=== PATIENT | female | born 1990 | race Asian ===

== ENCOUNTER 2023-07-17 17:26 | Emergency (ER) | payer OTHER, SELFPAY ==
[2023-07-17 17:31] VITALS: BP 91/66
[2023-07-17 17:57] LABS: % Basophils 1.1 % (0-2); % Eosinophils 2.4 % (0-6); % Immature Granulocytes 0.3 % (0-0.5); % Lymphocytes 37.2 % (20.5-51.1); % Monocytes 7.8 % (1.7-9.3); % Neutrophils 51.2 % (42.2-75.2); Absolute Eosinophils 0.1 10^3/uL (0-0.7); Absolute Lymphocytes 1.4 10^3/uL (1.2-3.4); Absolute Monocytes 0.3 10^3/uL (0.1-0.6); Absolute Neutrophils 1.9 10^3/uL (1.4-6.5); Hematocrit 41.7 % (37.0-47.0); Hemoglobin 14.7 g/dL (12.0-16.0); Mean Corp Hgb Conc. 35.3 g/dL (33.0-37.0); Mean Corpuscular Hgb 29.6 pg (27.0-31.0); Mean Corpuscular Volume 84.1 fL (81.0-99.0); Mean Platelet Volume 11.5 fL (7.4-10.4); Nucleated Red Blood Cells % 0 %; Platelet Count 181 10^3/uL (130-400); Red Blood Cell Count 4.96 10^6/uL (4.20-5.40); Red Cell Dist. Width 12.3 % (11.5-14.5); White Blood Cell Count 3.7 10^3/uL (4.8-10.8)
[2023-07-17 18:06] LABS: HCG, Serum Qualitative Screen Negative
[2023-07-17 18:17] LABS: Blood Urea Nitrogen 13 mg/dl (7-17); Calcium 9.2 mg/dl (8.4-10.2); Carbon Dioxide 24 mmol/L (22-30); Chloride 99 mmol/L (98-107); Glucose 95 mg/dl (70-99); Potassium 3.1 mmol/L (3.5-5.1); Sodium 132 mmol/L (135-145); eGFR > 60.00
[2023-07-17 18:19] LABS: Alcohol None Detected
[2023-07-17 18:28] LABS: Amphetamines Negative (Negative); Barbiturates Negative (Negative); Benzodiazepines Negative (Negative); Buprenorphine Negative (Negative); Cocaine Negative (Negative); Marijuana Negative (Negative); Methadone Negative (Negative); Methamphetamines Negative (Negative); Opiates Negative (Negative); Phencyclidine Negative (Negative); Tricyclic Antidepressants Negative (Negative)
[2023-07-17 18:40] LABS: COVID-19 Antigen Negative (Negative)
--- NOTE | 2023-07-17 19:16 | ED.GENMED ---
History of Present Illness
General
Chief Complaint: Crisis Evaluation
Exam Limitations: none
Time Seen by Provider: 07/17/23 18:18
Nursing documentation reviewed up to this point in time: agreed with
Travel History
Have you had any contact with someone who has COVID-19?: No
Do you have any symptoms of coronavirus? Fever > 100 degrees, chills, cough, shortness of breath, sore throat, loss of taste or smell, muscle aches, or headache?: No
History of Present Illness
History of Present Illness:
33-year-old female with a past medical history of anxiety depression who presents to the emergency room on a 302 filed by her mother apparently due to psychotic break, paranoid behavior and failure to care for herself. Patient refusing to speak
during my assessment�she will occasionally nod yes or no to certain questions but will not provide any verbal response. According to 302 report filed by her mother patient initially presented with psychotic behavior was prescribed medications for
these and was noncompliant. Apparently stole mother's credit card and booked a trip to [place] and flew there; apparently a missing person report was filed. Apparently patient flown back home, once again missing and this week and was found this
weekend sitting in a warehouse in [place] staring straight ahead apparently having not bathed or eaten in quite some time. Has been exhibiting increasing paranoia per report. When asked the patient if she has any physical pain or complaints
she shakes her head no. When asked her if she is suicidal she does not respond. When asked if she is homicidal she does not respond. When I ask if she feels safe at home she shrugs. Rest of history from patient limited as she is unwilling to
answer further questions.
Past History
Past History
ED Past Medical History: Psychiatric
ED Past Surgical History: Tonsilectomy
Social History
Tobacco: Non-smoker
Alcohol: None
Drug: None
Personal: Single
Living: alone
Employment: Employed
Review of Systems
Review of Systems
Unable to obtain full review of systems at this time due to: non-verbal
All Other Systems: Not applicable
Phy Exam
Physical Exam
Physical Exam:
General: Awake, alert; sitting in bed comfortably eating a food tray and in no acute distress
Head: Normocephalic, atraumatic
Eyes: Conjunctiva normal, EOMI
Throat: Airway intact, handling secretions
Neck: Trachea midline, supple without meningismus
Lungs: Clear to auscultation bilaterally, no wheezing, rales, rhonchi
Heart: Regular rate and rhythm, no murmurs, gallops, or rubs
Neuro: Moving all extremities with no gross motor or sensory deficit
Extremities: Warm and well-perfused
Psych: Withdrawn affect
Scores
Heart Failure Risk
Heart Failure Risk Score: Not Applicable
Heart Score for Chest Pain Patients
STEMI patient?: Not applicable
Withdrawal Assessment of Alcohol
Withdrawal Assessment Completed?: Not applicable
Course
Orders/Labs/Results
Orders:
Orders
07/17/23 17:39
Test Result ONCE
07/17/23 17:49
Alcohol Urgent
Basic Metabolic Panel Urgent
COVID-19 Antigen Urgent
Source: Nasal Swab
Complete Blood Count/With Diff Urgent
HCG, Serum Qualitative Screen Urgent
Magnesium Urgent
Comment: ADD ON
Phosphorus Urgent
Comment: ADD ON
07/17/23 17:55
Urine Drug Abuse Screen Urgent
Date Specimen was Collected: 07/17/23
Time Specimen was Collected: 17:39
07/17/23 19:04
Potassium Chloride [KCl] 40 meq PO NOW STA
07/17/23 19:19
Add On- LAB Urgent
Tests Added?: magnesium
Add On- LAB Urgent
Tests Added?: phosphate
07/17/23 19:38
Acetaminophen Urgent
Salicylate Urgent
Abnormal Lab Results
07/17/23 07/17/23
17:49 19:38
WBC 3.7 L 10^3/uL
(4.8-10.8)
MPV 11.5 H fL
(7.4-10.4)
Sodium 132 L mmol/L
(135-145)
Potassium 3.1 L mmol/L
(3.5-5.1)
Salicylates < 1.0 L mg/dl
(2.0-20.0)
Acetaminophen < 10 L ug/ml
(10-30)
07/17/23 17:49
07/17/23 17:49
Vital Signs
Initial and Last Documented VS:
Initial Vital Signs
Temp Pulse Resp BP Pulse Ox
36.7 C 85 20 91/66 100
07/17/23 17:31 07/17/23 17:31 07/17/23 17:31 07/17/23 17:31 07/17/23 17:31
Last Documented Vital Signs
Temp Pulse Resp BP Pulse Ox
36.7 C 85 20 91/66 100
07/17/23 17:31 07/17/23 17:31 07/17/23 17:31 07/17/23 17:31 07/17/23 17:31
MDM/Problems Addressed
Differential Diagnosis Includes:
Psychosis, delusional disorder, behavioral disorder
MDM/Problems Addressed:
33-year-old female presents on a 302 filed by mother for erratic behavior and apparently psychotic/paranoid behavior recently and noncompliance with medication. Patient has run from home multiple times most recently found sitting in an unsafe area
having not taken care of herself as described above. Patient is unwilling to answer any questions here although she is awake and alert she does not provide verbal response to any questions. Occasionally shakes her head yes or no. She does not
appear in any distress, her physical exam is as above. Plan to place an IV will check basic screening labs including a CBC and a CMP, hCG, tox screen. Discussed with crisis: patient awaiting telepsych evaluation. Monitor on one-to-one observation
reassess after the above.
Initial labs reviewed: CBC shows no clinically significant abnormalities, CMP shows mild hypokalemia which we will replete p.o. UDS and alcohol levels negative. At this point medically cleared for psychiatric placement. Awaiting telepsych
evaluation. Continue to monitor.
Telepsych evaluated patient, 302 upheld. Continue to monitor while awaiting placement.
Chronic conditions affecting care:
Anxiety/depression
*Pulse Oximetry
Patient hypoxic: no
*Critical Care Note
Total Time (30-74mins, 75-104mins- exclusive of procedures): Not Applicable
Data Reviewed
Source: patient and other (302 filing)
Patient Management
Discussion with other providers: Other (Crisis staff)
ED Attending Note
-
Portions of this chart may have been created with voice recognition software.� Occasional wrong word or��sound alike� substitutions may have occurred due to the inherent limitations of voice recognition software.
Discharge Plan
Departure
Patient Disposition: Psych Facility
Date of Disposition: 07/17/23
Time of Disposition: 20:43
Discharge Problem:
Psychosis
Referrals:
UNKNOWN - PT DOES,NOT KNOW [Family Provider] -
Interventions
Interventions:
*Risk Screen - Suicide Last Done: 07/17/23 18:00
*General Assessment Last Done: 07/17/23 17:31
*Neglect/Abuse Screening Last Done: 07/17/23 17:31
ED- Fall Risk Assessment Last Done: 07/17/23 23:30
*ED COVID-19 Vaccine History Last Done: 07/17/23 23:30
ED-Psychological Assessment Last Done: 07/17/23 18:56
[2023-07-17] MEDS: KCL 40 MEQ PO (19:38)
[2023-07-17 19:50] LABS: Magnesium 2.3 mg/dl (1.6-2.3); Phosphorus 3.2 mg/dl (2.5-4.5)
[2023-07-17 20:09] LABS: Acetaminophen < 10 ug/ml (10-30); Salicylate < 1.0 mg/dl (2.0-20.0)
[2023-07-18 06:33] VITALS: BP 86/50
[2023-07-18 08:20] VITALS: BP 87/59
[2023-07-18 08:21] VITALS: BP 92/57
== END 2023-07-18 11:36 ==
LOC: EMR 17:26
PROVIDERS: Emergency Medicine; EMERGENCY PHYSICIAN Emergency Medicine
DX: F29 Unspecified psychosis not due to a substance or known physiological condition (principal); F32.A Depression, unspecified; F41.9 Anxiety disorder, unspecified; Z91.148 Patient's other noncompliance with medication regimen for other reason
CPT/HCPCS: 99283; 80048; 80143; 80179; 80306; 82077; 83735; 84100; 84703; 85025; 87811